=== PATIENT | female | born 1945 | race Caucasian/White ===

== ENCOUNTER → 2017-01-26 | Outpatient (CLI) | payer OTHER | LOC: RAD 14:10 | DX: Z12.31 Encounter for screening mammogram for malignant neoplasm of breast (principal) ==

== ENCOUNTER → 2018-11-14 | Outpatient (CLI) | payer OTHER ==
[~2018-11-14] VITALS: Ht 170.2 cm; Wt 90.7 kg
[~2018-11-14] MED LIST: ALENDRONATE SOD70 MG PO; AMARYL4 MG PO; AMLODIPINE BESY10 MG PO; ASPIR 8181 MG PO; CHLORTHALIDONE25 MG PO; JANUVIA100 MG PO; LIPITOR 20 MG T20 M1 PO; LOSARTAN POTAS100 MG PO; METFORMIN HCL1000 MG PO; SYNTHROID100 MC1 PO; ZANAFLEX2 MG PO
--- NOTE | 2018-11-15 17:06 | PATH ---
[facility] [address] [place] [address] PATHOLOGY RPT PROCEDURE Name: SAVITA RODRIGEZ Room #: REG CLI MJenna.#: [id number] ������������������ Admission: 11/14/18 ������������������ Date of : 41 Discharge: Report #: [id number] Path Case #: [id number] [facility] Accession Number: [id number] . 01 Material submitted: . colon - DESCENDING COLON POLYP. Modifiers: descending . 01 Clinical history: . Pre-OP DX: Hx of polyp Post-OP DX: Polyp . 02 Diagnosis: Polyp, descending colon polyp, endoscopic biopsy: - Tubular adenoma. - Negative for high-grade dysplasia. (IUV:hospitality coordinator; 11/15/2018) MBR/11/15/2018 . 02 Electronically signed: . Yusra Durán MD, Pathologist NPI- [id number] . 01 Gross description: . Received in formalin labeled "Savita Rodrigez, descending colon polyp," is a 1.0 x 0.5 x 0.5 cm polypoid piece of chavarria soft tissue. The margin is inked and the tissue is sectioned perpendicular to the margin and submitted in its entirely in cassette A1 and A2. (TSD; 11/14/2018) TOB/TOB . 02 Pathologist provided ICD-10: D12.4 . 02 CPT . 784979 Specimen Comment: A courtesy copy of this report has been sent to Specimen Comment: [phone], . Specimen Comment: Report sent to / DR MISTRY Performed at: [address], [place] [id number] MD Ruslan Pichardo MD Phone: [phone] Performed at: [address] [id number] MD Yusra Durán MD Phone: [phone]
== END | disposition home or self-care (01) ==
LOC: GI 08:42
DX: Z12.11 Encounter for screening for malignant neoplasm of colon (principal); Z86.010 Personal history of colon polyps; K64.8 Other hemorrhoids; D12.4 Benign neoplasm of descending colon; E78.00 Pure hypercholesterolemia, unspecified; I10 Essential (primary) hypertension; E78.5 Hyperlipidemia, unspecified; E11.9 Type 2 diabetes mellitus without complications; E03.9 Hypothyroidism, unspecified; Z90.710 Acquired absence of both cervix and uterus; Z98.41 Cataract extraction status, right eye; Z98.42 Cataract extraction status, left eye; Z88.0 Allergy status to penicillin; Z79.899 Other long term (current) drug therapy; Z79.82 Long term (current) use of aspirin; Z98.890 Other specified postprocedural states
CPT/HCPCS: 62110; 62900

== ENCOUNTER → 2019-02-06 | Outpatient (CLI) | payer OTHER | LOC: RAD 10:36 | DX: Z12.31 Encounter for screening mammogram for malignant neoplasm of breast (principal) ==

== ENCOUNTER → 2020-02-14 | Outpatient (CLI) | payer OTHER | LOC: BC 10:11 | PROVIDERS: ATTEND Family Medicine | DX: Z12.31 Encounter for screening mammogram for malignant neoplasm of breast (principal) ==

== ENCOUNTER → 2021-02-18 | Outpatient (CLI) | payer OTHER | LOC: BC 12:44 | PROVIDERS: ATTEND Family Medicine | DX: Z12.31 Encounter for screening mammogram for malignant neoplasm of breast (principal); N64.89 Other specified disorders of breast ==